=== PATIENT | female | born 1935 | race Caucasian/White ===

== ENCOUNTER → 2020-09-18 | Outpatient (CLI) | payer MEDICARE ==
[~2020-09-18] MED LIST: ATEN50TA41 PO; FURO40TA6 PO; GABA300C PO; HYDR-3240 PO; IRBE300T8 PO; LEVO100T5 PO; OMEP40CA42 PO; PRAV20TA2 PO; TEMA30CA PO
[2020-09-18 14:05] LABS: ALBUMIN 3.8 g/dL (3.4-5.0); ANION GAP 6 mmol/L (5-15); CALCIUM 9.5 mg/dL (8.5-10.1); CHLORIDE 102 mmol/L (98-107)
[2020-09-18 14:09] LABS: ALANINE AMINOTRANSFERASE 32 U/L (12-78); ALKALINE PHOSPHATASE 88 U/L (45-117); BILIRUBIN,TOTAL 0.6 mg/dL (0.2-1.0); CREATININE 1.08 mg/dL (0.55-1.02)
== END | disposition home or self-care (01) ==
LOC: STAR 10:57
PROVIDERS: ATTEND Surgery
DX: Z01.812 Encounter for preprocedural laboratory examination (principal); Z20.828 Contact with and (suspected) exposure to other viral communicable diseases
CPT/HCPCS: 80053; 87635; 93005

== ENCOUNTER 2020-09-24 06:21 | Day surgery (SDC) | payer MEDICARE ==
[~2020-09-24] VITALS: Ht 157.5 cm; Wt 85.0 kg
[~2020-09-24 06:21] MED LIST changes: +HYDR-1067 PO; -HYDR-3240 PO
[2020-09-24 06:48] VITALS: BP 156/72
[2020-09-24] MEDS ORDERED: BUPIVACAINE/PF 0.5% ONE (06:52)
[2020-09-24] MEDS ORDERED: EPINEPHRINE 1 MG/ML, 1ML ONE (06:52)
[2020-09-24] MEDS ORDERED: LACTATED RINGERS 1,000 ML IV SCH (07:00)
[2020-09-24] MEDS ORDERED: CHLORHEXIDINE 15 ML UDC MM ONE (07:00)
[2020-09-24] MEDS ORDERED: FENTANYL PF 250 MCG/5ML ONE (07:08)
[2020-09-24] MEDS ORDERED: MIDAZOLAM 1 MG/ML, 2ML ONE (07:28)
[2020-09-24] MEDS ORDERED: DEXAMETHASONE 4 MG/ML, 1ML ONE (07:45)
[2020-09-24] MEDS ORDERED: PHENYLEPHRINE 10 MG/ML ONE (07:45)
[2020-09-24] MEDS ORDERED: METHOCARBAMOL 1,000 MG in DEXTROSE 5% 100 ML IV PRN (08:00)
[2020-09-24] MEDS ORDERED: OXYcodone 5 MG/5 ML ORAL.SOL UDC PO PRN (08:00)
[2020-09-24] MEDS ORDERED: hydrALAzine 20 MG/ML, 1ML IV PRN (08:00)
[2020-09-24] MEDS ORDERED: LABETALOL 5MG/ML, 20ML IV PRN (08:00)
[2020-09-24] MEDS ORDERED: HALOPERIDOL 5 MG/ML IV PRN (08:00)
[2020-09-24] MEDS ORDERED: ACETAMINOPHEN 325 MG TABLET PO PRN (08:00)
[2020-09-24] MEDS ORDERED: LORazepam 2 MG/ML, 1ML IVPush PRN (08:00)
[2020-09-24] MEDS ORDERED: ONDANSETRON 2MG/ML, 2ML IVPush PRN (08:00)
[2020-09-24] MEDS ORDERED: EPHEDRINE 50 MG/ML, 1ML IVPush PRN (08:00)
[2020-09-24] MEDS ORDERED: HYDROmorphone 1 MG/ML, 1ML INJ IVPush PRN (08:00)
[2020-09-24] MEDS ORDERED: BUPIVACAINE/PF-EPI 0.5% 1:200K INFIL ONE (08:07)
[2020-09-24] MEDS ORDERED: CEFAZOLIN 1,000 MG ONE (08:48)
[2020-09-24] MEDS ORDERED: GLYCOPYRROLATE 0.2MG/1ML, 5ML ONE (08:48)
[2020-09-24] MEDS ORDERED: NEOSTIGMINE 1 MG/ML, 10ML ONE (08:48)
[2020-09-24] MEDS ORDERED: ONDANSETRON 2MG/ML, 2ML ONE (08:48)
[2020-09-24] MEDS ORDERED: SUCCINYLCHOLINE 20 MG/ML, 10ML ONE (08:48)
[2020-09-24] MEDS ORDERED: PROPOFOL 10 MG/ML, 20ML ONE (08:48)
[2020-09-24] MEDS ORDERED: ROCURONIUM 10MG/ML,5ML ONE (08:48)
[2020-09-24] MEDS ORDERED: PROPOFOL 50 ML ONE ×2 (08:48→11:07)
[2020-09-24] MEDS ORDERED: IBUP-1222 PO (09:17)
[2020-09-24] MEDS ORDERED: HYDR-1067 PO (09:17)
[2020-09-24] MEDS ORDERED: DOCU-131 PO (09:20)
[2020-09-24] MEDS ORDERED: OXYcodone 5 MG/5 ML ORAL.SOL UDC ONE (09:33)
[2020-09-24] MEDS ORDERED: ACETAMINOPHEN 325 MG TABLET ONE (09:33)
[2020-09-24] MEDS ORDERED: FENTANYL PF 100 MCG/2ML ONE (09:33)
[2020-09-24] MEDS ORDERED: ACETAMINOPHEN 650 MG/20.3 ML UDC ONE (09:33)
[2020-09-24] MEDS: FENTANYL PF 100 MCG/2ML IV PRN ×2 (09:40→10:15)
== END 2020-09-24 13:15 | disposition home or self-care (01) ==
LOC: OUT 06:21
PROVIDERS: ATTEND Surgery
DX: K43.2 Incisional hernia without obstruction or gangrene (principal); K21.9 Gastro-esophageal reflux disease without esophagitis; I10 Essential (primary) hypertension; E78.5 Hyperlipidemia, unspecified; Z79.899 Other long term (current) drug therapy; Z87.891 Personal history of nicotine dependence; Z88.0 Allergy status to penicillin; Z90.49 Acquired absence of other specified parts of digestive tract
CPT/HCPCS: 49560; 49568; C1729; C1781; J0171; J0330; J0690; J1100; J2250; J2370; J2405; J2704; J2710; J3010; J7120